=== PATIENT | female | born 1940 | race Two or more races ===

== ENCOUNTER 2017-12-05 13:32 | Inpatient (IN) | payer MEDICARE, MEDICAID ==
[~2017-12-05] VITALS: Ht 157.5 cm; Wt 66.4 kg
[2017-12-05] MEDS ORDERED: SODIUM CHLORIDE 0.9% 500 ML IVB ONE (14:49)
[2017-12-05] MEDS ORDERED: ONDANSETRON HCL 4 MG/2 ML VIAL IV ONE (15:00)
[2017-12-05 15:47] LABS: White Blood Cell 4.2 10^3/uL (4.4-10.8)
[2017-12-05 15:49] LABS: Hematocrit 37.1 % (36.0-46.0); Hemoglobin 12.1 g/dL (12.2-16.2); Mean Corpuscular Hemoglobin 26.2 pg (28.0-32.0); Mean Corpuscular Hgb Conc. 32.6 g/dL (32.0-36.0); Mean Corpuscular Volume 80.3 fL (80.0-100.0); Platelet Count (auto) 86 10^3/uL (140-450); Red Blood Cells 4.62 10^6/uL (4.0-5.20)
[2017-12-05 15:54] LABS: Urine Bacteria NONE SEEN /hpf (None Seen); Urine Blood Negative /uL (Negative); Urine Mucus FEW (None Seen); Urine Specific Gravity 1.032 (1.001-1.035); Urine WBC 31 /hpf (0 - 5)
[2017-12-05 16:02] LABS: INR 1.08 (0.9-1.15); Prothrombin Time 11.5 sec (9.27-12.13)
[2017-12-05 16:05] LABS: BUN/Creatinine Ratio 28.8; Calcium 8.9 mg/dL (8.5-10.1); Magnesium 2.2 mg/dL (1.6-2.6); Potassium 3.7 mmol/L (3.5-5.1)
[2017-12-05 16:09] LABS: Band Neutrophils % (manual) 0; Basophils % (manual) 0 (0.0-2.0); Blast Cells 0; Metamyelocytes % 0; Myelocytes % 0; Promyelocytes % 0; Reactive Lymphocytes 0; Red Cell Distribution Width 26.7 % (11.8-14.3)
[2017-12-05 16:19] LABS: Albumin 3.7 g/dL (3.4-5.0); Bilirubin, Total 0.8 mg/dL (0.2-1.0); Total Protein 8.6 g/dL (6.4-8.2)
[2017-12-05 17:23] LABS: Eosinophils % (manual) 21 (0-7); Lymphocytes % (manual) 24 (10.0-50.0); Monocytes % (manual) 10 (0-12)
[2017-12-05] MEDS ORDERED: TEMAZEPAM 15 MG CAP PO PRN (19:15)
[2017-12-05] MEDS ORDERED: PANTOPRAZOLE 40 MG/10 ML VIAL IV ONE (19:15)
[2017-12-05] MEDS ORDERED: NITROGLYCERIN 0.4 MG SL TAB SL PRN (19:15)
[2017-12-05] MEDS ORDERED: cefTRIAXone 1GM/10ml IVPUSH 10 ML IV ONE (19:15)
[2017-12-05] MEDS ORDERED: MORPHINE SULFATE 4 MG/ML SYR/VIAL IV PRN ×2 (19:15)
[2017-12-05] MEDS ORDERED: LORazepam 0.5 MG TAB PO PRN (19:15)
[2017-12-05] MEDS: SODIUM CHLORIDE 0.9% 1,000 ML IV SCH (19:53)
[2017-12-05 23:17] VITALS: BP 151/81
[2017-12-06] VITALS (8 sets, daily range): BP systolic 124–151; BP diastolic 67–81
[2017-12-06] MEDS: SODIUM CHLORIDE 0.9% 1,000 ML IV SCH ×3 (02:43→23:15)
[2017-12-06] MEDS: metroNIDAZOLE 500MG/100ML 100 ML IV SCH ×5 (05:25→23:14)
[2017-12-06 05:44] LABS: Hemoglobin 11.5 g/dL (12.2-16.2); Mean Corpuscular Hgb Conc. 32.9 g/dL (32.0-36.0)
[2017-12-06 05:47] LABS: Mean Corpuscular Hemoglobin 26.4 pg (28.0-32.0); Mean Corpuscular Volume 80.3 fL (80.0-100.0); Red Blood Cells 4.35 10^6/uL (4.0-5.20); White Blood Cell 2.8 10^3/uL (4.4-10.8)
[2017-12-06 06:00] LABS: Platelet Count (auto) 69 10^3/uL (140-450); Red Cell Distribution Width 26.1 % (11.8-14.3)
[2017-12-06 06:01] LABS: Basophils % (manual) 0 (0.0-2.0); Blast Cells 0; Metamyelocytes % 0; Myelocytes % 0; Promyelocytes % 0; Reactive Lymphocytes 0
[2017-12-06 06:08] LABS: Calcium 7.5 mg/dL (8.5-10.1); Potassium 3.4 mmol/L (3.5-5.1)
[2017-12-06 06:09] LABS: BUN/Creatinine Ratio 25.4
[2017-12-06 06:13] LABS: Bilirubin, Total 0.6 mg/dL (0.2-1.0); Total Protein 7.2 g/dL (6.4-8.2)
[2017-12-06 08:44] LABS: Band Neutrophils % (manual) 1; Eosinophils % (manual) 30 (0-7); Lymphocytes % (manual) 26 (10.0-50.0); Monocytes % (manual) 6 (0-12)
[2017-12-06] MEDS ORDERED: cefTRIAXone 1GM/10ml IVPUSH 10 ML IV SCH (09:00)
[2017-12-06] MEDS: PANTOPRAZOLE 40 MG/10 ML VIAL IV SCH (09:23)
[2017-12-06] MEDS: MORPHINE SULFATE 4 MG/ML SYR/VIAL IV PRN (13:46)
[2017-12-07] VITALS (7 sets, daily range): BP systolic 124–158; BP diastolic 71–80
[2017-12-07] MEDS: metroNIDAZOLE 500MG/100ML 100 ML IV SCH ×4 (05:46→23:21)
[2017-12-07] MEDS: cefTRIAXone 1GM/50ML D5W 50 ML IV SCH (09:21)
[2017-12-07] MEDS: PANTOPRAZOLE 40 MG/10 ML VIAL IV SCH (09:21)
[2017-12-07] MEDS: SODIUM CHLORIDE 0.9% 1,000 ML IV SCH ×2 (11:02→19:51)
[2017-12-07] MEDS: MORPHINE SULFATE 4 MG/ML SYR/VIAL IV PRN (21:20)
[2017-12-07] MEDS: ONDANSETRON HCL 4 MG/2 ML VIAL IV PRN (22:22)
[2017-12-08] MEDS ORDERED: ACETAMINOPHEN 325 MG TAB PO ONE (01:15)
[2017-12-08 05:00] VITALS: BP 117/64
[2017-12-08] MEDS: metroNIDAZOLE 500MG/100ML 100 ML IV SCH ×3 (05:31→18:01)
[2017-12-08] MEDS: SODIUM CHLORIDE 0.9% 1,000 ML IV SCH ×2 (06:53→17:13)
[2017-12-08] MEDS ORDERED: ceFAZolin 1GM/50ML 50 ML IV ONE (06:58)
[2017-12-08] MEDS ORDERED: POVIDONE IODINE 10 % TOPICAL OINT 30GM TOP ONE (07:15)
[2017-12-08] MEDS ORDERED: LIDOCAINE 1% HCL (LOCAL ANESTH.) INJ 20ML MDV ONE (07:24)
[2017-12-08] MEDS ORDERED: SUCCINYLCHOLINE CHLORIDE 20 MG/ML 10ML VIAL IV ONE (07:24)
[2017-12-08] MEDS ORDERED: ROCURONIUM 10MG/ML 10ML VIAL IV ONE (07:28)
[2017-12-08] MEDS ORDERED: MIDAZOLAM HCL 1MG/1ML-2 ML VIAL ONE (07:28)
[2017-12-08] MEDS ORDERED: ETOMIDATE (2MG/ML) 20ML VIAL IV ONE (07:29)
[2017-12-08] MEDS ORDERED: METOCLOPRAMIDE HCL 5MG/ml INJ 2ml VIAL ONE (07:30)
[2017-12-08] MEDS ORDERED: fentaNYL CITRATE 100 MCG/2 ML VL ONE (07:45)
[2017-12-08] MEDS ORDERED: ONDANSETRON HCL 4 MG/2 ML VIAL IV ONE (08:00)
[2017-12-08] MEDS ORDERED: NALOXONE HCL 0.4 MG/ML VIAL IV PRN (08:00)
[2017-12-08] MEDS ORDERED: HYDROmorphone HCL 2 MG/ML VL IV PRN ×2 (08:00)
[2017-12-08] MEDS ORDERED: hydrALAZINE HCL 20 MG/ML VL IV PRN (08:00)
[2017-12-08] MEDS ORDERED: NEOSTIGMINE 1 MG/ML INJ (10mg/10ML VIAL) ONE (08:21)
[2017-12-08] MEDS ORDERED: GLYCOPYRROLATE 0.2 MG/ML 1ML VIAL ONE (08:21)
[2017-12-08 09:00] VITALS: BP 124/76
[2017-12-08] MEDS: cefTRIAXone 1GM/50ML D5W 50 ML IV SCH (09:00)
[2017-12-08] MEDS: PANTOPRAZOLE 40 MG/10 ML VIAL IV SCH (10:00)
[2017-12-08] MEDS: ONDANSETRON HCL 4 MG/2 ML VIAL IV PRN ×3 (11:00→22:56)
[2017-12-08 13:00] VITALS: BP 130/81
[2017-12-08] MEDS: MORPHINE SULFATE 4 MG/ML SYR/VIAL IV PRN ×3 (13:45→22:55)
[2017-12-08 16:55] VITALS: BP 141/76
[2017-12-08 22:00] VITALS: BP 144/95
[2017-12-09] MEDS: metroNIDAZOLE 500MG/100ML 100 ML IV SCH ×5 (00:18→23:57)
[2017-12-09] MEDS: SODIUM CHLORIDE 0.9% 1,000 ML IV SCH ×3 (04:07→23:57)
[2017-12-09 05:00] VITALS: BP 148/86
[2017-12-09] MEDS: ONDANSETRON HCL 4 MG/2 ML VIAL IV PRN ×2 (07:24→20:17)
[2017-12-09] MEDS: MORPHINE SULFATE 4 MG/ML SYR/VIAL IV PRN (07:24)
[2017-12-09 08:25] VITALS: BP 135/74
[2017-12-09 09:00] VITALS: BP 135/74
[2017-12-09] MEDS ORDERED: MORPHINE SULFATE 4 MG/ML SYR/VIAL IV PRN (09:30)
[2017-12-09] MEDS: cefTRIAXone 1GM/50ML D5W 50 ML IV SCH (10:22)
[2017-12-09] MEDS: PANTOPRAZOLE 40 MG/10 ML VIAL IV SCH (11:44)
[2017-12-09 13:00] VITALS: BP 144/75
[2017-12-09] MEDS ORDERED: ACETAMINOPHEN/CODEINE#3 (300/30mg) TAB PO PRN (14:15)
[2017-12-09 16:53] VITALS: BP 141/74
[2017-12-09] MEDS: METOCLOPRAMIDE HCL 5MG/ml INJ 2ml VIAL IV SCH (21:56)
[2017-12-09 22:00] VITALS: BP 152/79
[2017-12-10 05:00] VITALS: BP 151/80
[2017-12-10] MEDS: metroNIDAZOLE 500MG/100ML 100 ML IV SCH (06:56)
[2017-12-10] MEDS: METOCLOPRAMIDE HCL 5MG/ml INJ 2ml VIAL IV SCH (06:57)
[2017-12-10 09:00] VITALS: BP 154/81
[2017-12-10] MEDS: PANTOPRAZOLE 40 MG/10 ML VIAL IV SCH (09:26)
[2017-12-10] MEDS: cefTRIAXone 1GM/50ML D5W 50 ML IV SCH (09:26)
[2017-12-10] MEDS: SODIUM CHLORIDE 0.9% 1,000 ML IV SCH (09:26)
[2017-12-10 12:49] VITALS: BP 154/81
[2017-12-10 13:00] VITALS: BP 146/79
[2017-12-10 16:11] VITALS: BP 151/83
== END 2017-12-10 16:40 | disposition home or self-care (01) | DRG 418 ==
LOC: ER 13:32 → TELE-WESTW 13:33
PROVIDERS: ADMIT Internal Medicine; ATTEND Family Medicine
PROC: 0FT44ZZ Resection of Gallbladder, Percutaneous Endoscopic Approach (ICD-10-PCS; principal; 2017-12-08 07:21)
DX: K80.20 Calculus of gallbladder without cholecystitis without obstruction (principal); N39.0 Urinary tract infection, site not specified; K74.60 Unspecified cirrhosis of liver; D69.6 Thrombocytopenia, unspecified; E03.9 Hypothyroidism, unspecified; E66.9 Obesity, unspecified; D64.9 Anemia, unspecified; E66.3 Overweight; I10 Essential (primary) hypertension; Z80.49 Family history of malignant neoplasm of other genital organs; Z68.26 Body mass index [BMI] 26.0-26.9, adult; Z90.710 Acquired absence of both cervix and uterus; Z90.49 Acquired absence of other specified parts of digestive tract
CPT/HCPCS: 36415; 71046; 74176; 76705; 78226; 80053; 81001; 82150; 82247; 83690; 83735; 85007; 85027; 85610; 85730; 86850; 86900; 86901; 87086; 93005; 96361; 96374; 96375; A6257; C9113; J0330; J0690; J0696; J2001; J2250; J2405; J3490

== ENCOUNTER 2018-09-21 16:51 | Inpatient (IN) | payer MEDICARE, MEDICAID ==
[2018-09-22] MEDS ORDERED: SODIUM CHLORIDE 0.9% 1,000 ML IV ONE (00:29)
[2018-09-22] MEDS ORDERED: IOHEXOL 300 MG/ML 100ML BOTTLE IJ ONE (00:47)
[2018-09-22 01:13] LABS: Mean Corpuscular Hemoglobin 26.9 pg (28.0-32.0); Platelet Count (auto) 72 10^3/uL (140-450); White Blood Cell 3.1 10^3/uL (4.4-10.8)
[2018-09-22 01:15] LABS: Hematocrit 37.2 % (36.0-46.0); Hemoglobin 12.4 g/dL (12.2-16.2); Mean Corpuscular Hgb Conc. 33.2 g/dL (32.0-36.0); Mean Corpuscular Volume 80.8 fL (80.0-100.0); Red Blood Cells 4.61 10^6/uL (4.0-5.20); Red Cell Distribution Width 15.7 % (11.8-14.3)
[2018-09-22 01:17] LABS: Band Neutrophils % (manual) 0; Basophils % (manual) 0 (0.0-2.0); Blast Cells 0; Metamyelocytes % 0; Myelocytes % 0; Promyelocytes % 0; Reactive Lymphocytes 0
[2018-09-22 01:31] LABS: BUN/Creatinine Ratio 26.5; Calcium 8.7 mg/dL (8.5-10.1); Magnesium 2.1 mg/dL (1.6-2.6); Potassium 3.5 mmol/L (3.5-5.1)
[2018-09-22 01:34] LABS: Bilirubin, Total 0.5 mg/dL (0.2-1.0); Total Protein 7.8 g/dL (6.4-8.2)
[2018-09-22 01:36] LABS: Eosinophils % (manual) 18 (0-7); Lymphocytes % (manual) 31 (10.0-50.0); Monocytes % (manual) 6 (0-12)
[2018-09-22 01:59] LABS: Urine Bacteria NONE SEEN /hpf (None Seen); Urine Blood TRACE /uL (Negative); Urine Specific Gravity 1.017 (1.001-1.035); Urine WBC 101 /hpf (0 - 5)
[2018-09-22] MEDS ORDERED: ACETAMINOPHEN 325 MG TAB PO PRN (05:15)
[2018-09-22] MEDS ORDERED: ONDANSETRON HCL 4 MG/2 ML VIAL IV PRN (05:15)
[2018-09-22] MEDS ORDERED: LOPERAMIDE HCL 2 MG CAP PO PRN (05:15)
[2018-09-22] MEDS ORDERED: cloNIDine HCL 0.1 MG TAB PO PRN (05:15)
[2018-09-22] MEDS ORDERED: TEMAZEPAM 15 MG CAP PO PRN (05:15)
[2018-09-22] MEDS: LEVOTHYROXINE SODIUM 50 MCG TAB PO SCH (07:00)
[2018-09-22] MEDS: FAMOTIDINE 20 MG TAB PO SCH ×2 (09:57→21:40)
[2018-09-22 19:30] VITALS: BP 147/82
--- NOTE | 2018-09-22 19:30 | NUR ---
[facility] admit from ER KAY TORRES admitted to [facility] after SBAR received. Patient oriented to ROHAN GUY RN primary RN, unit, room, bed, and unit policies regarding patient care and visiting hours. Patient weighed by bed scale and encouraged to call if they need something. All questions and concerns addressed, patient verbalized understanding.
[2018-09-22 22:00] VITALS: BP 147/82
[2018-09-23 05:46] VITALS: BP 126/67
[2018-09-23 06:26] LABS: Hemoglobin 12.2 g/dL (12.2-16.2); Mean Corpuscular Hemoglobin 26.8 pg (28.0-32.0); Red Cell Distribution Width 15.6 % (11.8-14.3); White Blood Cell 2.6 10^3/uL (4.4-10.8)
[2018-09-23 06:29] LABS: Mean Corpuscular Volume 81.1 fL (80.0-100.0); Platelet Count (auto) 65 10^3/uL (140-450); Red Blood Cells 4.56 10^6/uL (4.0-5.20)
[2018-09-23] MEDS: LEVOTHYROXINE SODIUM 50 MCG TAB PO SCH (06:30)
[2018-09-23 06:34] LABS: Basophils % (manual) 0 (0.0-2.0); Blast Cells 0; Metamyelocytes % 0; Myelocytes % 0; Promyelocytes % 0; Reactive Lymphocytes 0
[2018-09-23 06:48] LABS: BUN/Creatinine Ratio 17.6; Calcium 8.4 mg/dL (8.5-10.1); Potassium 3.5 mmol/L (3.5-5.1)
--- NOTE | 2018-09-23 07:15 | NUR ---
OPENING SHIFT NOTE ASSUMED CARE OF PATIENT FROM PILOT MANAGER RN ROHAN. PATIENT IS AWAKE AND ALERT X4. PATIENT HAS NO S/S OF DISTRESS/SOB OR PAIN. INSTRUCTED PATIENT ON POC, PATIENT VERBALIZED UNDERSTANDING. BED IS IN LOWEST POSITION WITH SIDE RAILS RAISED X2, BED WHEELS LOCKED, AND CALL LIGHT IS WITHIN REACH. WILL CONTINUE TO MONITOR.
[2018-09-23 07:40] VITALS: BP 131/73
[2018-09-23 08:21] LABS: Band Neutrophils % (manual) 3; Lymphocytes % (manual) 24 (10.0-50.0); Monocytes % (manual) 7 (0-12)
[2018-09-23 08:22] LABS: Eosinophils % (manual) 16 (0-7)
[2018-09-23 09:00] VITALS: BP 131/73
[2018-09-23] MEDS: FAMOTIDINE 20 MG TAB PO SCH (10:14)
--- NOTE | 2018-09-23 12:00 | NUR ---
MD ROSALES AT BEDSIDE UPDATED MD ON PATIENT'S STATUS, INCLUDING LABS, MD IS AWARE AND WILL PUT IN DISCHARGE ORDERS. WILL FOLLOW THROUGH WITH ORDERS.
[2018-09-23 13:00] VITALS: BP 141/81
[2018-09-23 14:01] VITALS: BP 141/81
--- NOTE | 2018-09-23 15:19 | NUR ---
Discharge instructions given as ordered. Encourage to follow up with PMD as instructed. All questions and concerns addressed. Patient verbalized understanding. Medication reconciliation form completed and copy given to patient. IV removed with catheter intact, pressure dressing applied. Patient refuse wheelchair and ambulated to vehicle with all personal belongings, accompanied by family member. No distress noted at time of departure.
== END 2018-09-23 15:15 | disposition home or self-care (01) | DRG 641 ==
LOC: ER 16:51 → OVERFLOW 16:52 → EAST 09-22 19:45
PROVIDERS: ADMIT Nurse Practitioner; ATTEND Family Medicine
DX: E86.0 Dehydration (principal); N39.0 Urinary tract infection, site not specified; K52.9 Noninfective gastroenteritis and colitis, unspecified; I10 Essential (primary) hypertension; K74.60 Unspecified cirrhosis of liver; E03.9 Hypothyroidism, unspecified; K57.90 Diverticulosis of intestine, part unspecified, without perforation or abscess without bleeding; R16.2 Hepatomegaly with splenomegaly, not elsewhere classified; D69.6 Thrombocytopenia, unspecified; Z90.710 Acquired absence of both cervix and uterus; Z90.49 Acquired absence of other specified parts of digestive tract; Z85.42 Personal history of malignant neoplasm of other parts of uterus; Z80.9 Family history of malignant neoplasm, unspecified; Z79.899 Other long term (current) drug therapy
CPT/HCPCS: 36415; 74177; 80048; 80053; 81001; 83605; 83690; 83735; 85007; 85027; 87045; 87493; 87899; 96360; G0378

== ENCOUNTER 2021-04-16 22:25 | Emergency (ER) | payer MEDICARE, MEDICAID ==
[~2021-04-16] VITALS: Ht 152.4 cm; Wt 66.7 kg
[2021-04-16] MEDS ORDERED: ONDANSETRON HCL 4 MG/2 ML VIAL IV ONE (23:45)
[2021-04-16 23:46] LABS: Basophils # (auto) 0 10 ^3/uL (0-0.2); Mean Corpuscular Hemoglobin 26.3 pg (28.0-32.0); Neutrophils # (auto) 3.7 10 ^3/uL (1.6-8.6); Nucleated Red Blood Cells % 0.1 %
[2021-04-16 23:48] LABS: Eosinophils # (auto) 0.4 10 ^3/uL (0-0.8); Eosinophils % (auto) 8.8 % (0.0-7.0); Lymphocytes # (auto) 0.5 10 ^3/uL (0.4-5.4); Lymphocytes % (auto) 9.7 % (10.0-50.0); Mean Corpuscular Hgb Conc. 33.3 g/dL (32.0-36.0); Mean Corpuscular Volume 79.1 fL (80.0-100.0); Monocytes # (auto) 0.3 10 ^3/uL (0-1.3); Monocytes % (auto) 6.2 % (0.0-12.0); Neutrophils % (auto) 74.3 % (37.0-80.0); Red Blood Cells 4.55 10^6/uL (4.0-5.20); Red Cell Distribution Width 17.2 % (11.8-14.3)
[2021-04-16] MEDS ORDERED: levETIRAcetam 500 MG/5ML INJ IV ONE (23:48)
[2021-04-17 00:06] LABS: Albumin 3.8 g/dL (3.4-5.0); Calcium 8.9 mg/dL (8.5-10.1); Magnesium 2.1 mg/dL (1.6-2.6); Potassium 4.2 mmol/L (3.5-5.1)
[2021-04-17 00:11] LABS: Bilirubin, Total 0.7 mg/dL (0.2-1.0); Total Protein 8.2 g/dL (6.4-8.2)
[2021-04-17 00:31] LABS: INR 1.14 (0.9-1.15); Partial Thromboplastin Time 25.7 sec (23.6-33.0)
[2021-04-17 01:47] VITALS: BP 154/72
== END 2021-04-17 02:00 | disposition short-term general hospital (02) ==
LOC: ER 22:26
DX: R42 Dizziness and giddiness (principal); I62.00 Nontraumatic subdural hemorrhage, unspecified; I10 Essential (primary) hypertension; Z90.710 Acquired absence of both cervix and uterus; Z20.822 Contact with and (suspected) exposure to COVID-19
CPT/HCPCS: 36415; 70450; 71045; 80053; 82140; 83735; 84484; 85025; 85610; 85730; 86850; 86900; 86901; 87426; 93005; 96365; 96375; 99285; J1953; J7060

== ENCOUNTER 2021-05-02 10:00 | Emergency (ER) | payer MEDICARE, MEDICAID ==
[~2021-05-02] VITALS: Ht 152.4 cm; Wt 65.8 kg
[2021-05-02 11:38] LABS: INR 1.17 (0.9-1.15); Partial Thromboplastin Time 29.1 sec (23.6-33.0)
[2021-05-02 11:50] LABS: Albumin 3.6 g/dL (3.4-5.0); Basophils # (auto) 0 10 ^3/uL (0-0.2); Basophils % (auto) 0.6 % (0.0-2.0); Calcium 9.4 mg/dL (8.5-10.1); Eosinophils # (auto) 0.5 10 ^3/uL (0-0.8); Eosinophils % (auto) 14.8 % (0.0-7.0); Hematocrit 35.3 % (36.0-46.0); Hemoglobin 11.8 g/dL (12.2-16.2); Lymphocytes # (auto) 0.5 10 ^3/uL (0.4-5.4); Lymphocytes % (auto) 14.7 % (10.0-50.0); Mean Corpuscular Hemoglobin 26.1 pg (28.0-32.0); Mean Corpuscular Hgb Conc. 33.3 g/dL (32.0-36.0); Mean Corpuscular Volume 78.4 fL (80.0-100.0); Monocytes # (auto) 0.3 10 ^3/uL (0-1.3); Monocytes % (auto) 10.1 % (0.0-12.0); Neutrophils # (auto) 1.9 10 ^3/uL (1.6-8.6); Neutrophils % (auto) 59.8 % (37.0-80.0); Nucleated Red Blood Cells % 0.1 %; Red Blood Cells 4.51 10^6/uL (4.0-5.20); Red Cell Distribution Width 15.9 % (11.8-14.3); White Blood Cell 3.1 10^3/uL (4.4-10.8)
[2021-05-02 11:55] LABS: BUN/Creatinine Ratio 16.9; Bilirubin, Total 0.9 mg/dL (0.2-1.0)
[2021-05-02 14:22] VITALS: BP 140/74
== END 2021-05-02 15:01 | disposition home or self-care (01) ==
LOC: ER 10:00
DX: R51.9 Headache, unspecified (principal); I10 Essential (primary) hypertension; E03.9 Hypothyroidism, unspecified; Z86.2 Personal history of diseases of the blood and blood-forming organs and certain disorders involving the immune mechanism; Z90.49 Acquired absence of other specified parts of digestive tract; Z90.710 Acquired absence of both cervix and uterus
CPT/HCPCS: 36415; 70450; 71045; 80053; 83880; 84484; 85025; 85610; 85652; 85730; 86850; 86900; 86901; 93005

== ENCOUNTER 2023-04-25 13:30 | Emergency (ER) | payer MEDICARE, MEDICAID ==
[~2023-04-25] VITALS: Ht 121.9 cm; Wt 62.3 kg
[2023-04-25 15:26] LABS: Hematocrit 40.2 % (36.0-46.0); Mean Corpuscular Hemoglobin 27.9 pg (28.0-32.0); Mean Corpuscular Hgb Conc. 32.3 g/dL (32.0-36.0); Mean Corpuscular Volume 86.2 fL (80.0-100.0); Red Blood Cells 4.67 10^6/uL (4.0-5.20); Red Cell Distribution Width 14.1 % (11.8-14.3); White Blood Cell 4.1 10^3/uL (4.4-10.8)
[2023-04-25 15:40] LABS: Band Neutrophils % (manual) 0; Basophils % (manual) 0 (0.0-2.0); Blast Cells 0; Metamyelocytes % 0; Myelocytes % 0; Promyelocytes % 0; Reactive Lymphocytes 0
[2023-04-25 15:41] LABS: Alanine Aminotransferase 32 U/L (7-40); Alkaline Phosphatase 118 U/L (46-116); Anion Gap 5 (5-15); Aspartate Aminotransferase 33 U/L (13-40); Bilirubin, Total 0.6 mg/dL (0.2-1.0); Blood Urea Nitrogen 13 mg/dL (9-23); Calcium 9.9 mg/dL (8.7-10.4); Carbon Dioxide 25 mmol/L (20-30); Chloride 109 mmol/L (98-107); Glucose 120 mg/dL (74-106); Lipase 44 U/L (12-53); Potassium 3.9 mmol/L (3.5-5.1); Sodium 139 mmol/L (136-145); Total Protein 7.7 g/dL (5.7-8.2)
[2023-04-25 16:11] LABS: Eosinophils % (manual) 10 (0-7); Lymphocytes % (manual) 20 (10.0-50.0); Monocytes % (manual) 10 (0-12); Platelet Estimate Decreased
[2023-04-25 16:42] LABS: COVID19 ANTIGEN SOFIA FIA NEGATIVE (NEGATIVE)
[2023-04-25] MEDS ORDERED: PRED20TA2 PO (17:48)
[2023-04-25 18:17] VITALS: BP 139/62; PULSE 64; RESP 18; TEMP 98.2; O2SAT 98
== END 2023-04-25 18:16 | disposition home or self-care (01) ==
LOC: ER 13:30
DX: R07.81 Pleurodynia (principal); R06.00 Dyspnea, unspecified; E11.9 Type 2 diabetes mellitus without complications; I10 Essential (primary) hypertension; Z90.710 Acquired absence of both cervix and uterus; Z20.822 Contact with and (suspected) exposure to COVID-19
CPT/HCPCS: 36415; 71045; 74176; 80053; 82962; 83690; 85007; 85027; 87426; 93005

== ENCOUNTER 2023-08-12 14:00 | Emergency (ER) | payer MEDICARE, MEDICAID ==
[~2023-08-12] VITALS: Ht 144.8 cm; Wt 64.9 kg
[~2023-08-12 14:00] MED LIST: PRED20TA2 PO
[2023-08-12 14:14] VITALS: BP 131/102; PULSE 77; RESP 16; O2SAT 96
[2023-08-12] MEDS ORDERED: ACET500T58 PO (14:55)
[2023-08-12] MEDS ORDERED: AZIT4SOL EACHEYE (14:55)
== END 2023-08-12 18:10 | disposition home or self-care (01) ==
LOC: ER 14:02
DX: H11.422 Conjunctival edema, left eye (principal); H10.89 Other conjunctivitis; I10 Essential (primary) hypertension; E11.9 Type 2 diabetes mellitus without complications; E66.9 Obesity, unspecified; Z68.31 Body mass index [BMI] 31.0-31.9, adult; Z86.2 Personal history of diseases of the blood and blood-forming organs and certain disorders involving the immune mechanism; Z98.890 Other specified postprocedural states; Z79.899 Other long term (current) drug therapy

== ENCOUNTER 2023-08-14 01:39 | Emergency (ER) | payer MEDICARE, MEDICAID ==
[~2023-08-14] VITALS: Ht 162.6 cm; Wt 62.5 kg
[~2023-08-14 01:39] MED LIST changes: +ACET500T58 PO; +AZIT4SOL EACHEYE
[2023-08-14 01:50] VITALS: BP 168/65; PULSE 81; RESP 16; TEMP 98.1; O2SAT 98
[2023-08-14] MEDS: ERYTHROMY OPTH OINT 5mg/gm 1gm or 3.5gm tube OP ONE (02:00)
[2023-08-14] MEDS ORDERED: CLIN-203 PO (03:01)
[2023-08-14] MEDS ORDERED: OFL50TS OP (03:01)
[2023-08-14] MEDS: cefTRIAXone SOD 1,000 MG VL IM ONE (03:23)
== END 2023-08-14 03:26 | disposition home or self-care (01) ==
LOC: ER 01:39
DX: H10.33 Unspecified acute conjunctivitis, bilateral (principal); E11.9 Type 2 diabetes mellitus without complications; I10 Essential (primary) hypertension; Z90.710 Acquired absence of both cervix and uterus
CPT/HCPCS: 96372; 99283; J0696